=== PATIENT | female | born 1995 | race Two or more races ===

== ENCOUNTER 2019-12-28 15:58 | Emergency (ER) | payer BC ==
[~2019-12-28] VITALS: Ht 154.9 cm; Wt 49.0 kg
[2019-12-28 17:17] LABS: Urine Bacteria FEW /hpf (None Seen); Urine Blood Negative /uL (Negative); Urine Mucus FEW (None Seen); Urine WBC 28 /hpf (0 - 5)
[2019-12-28 18:24] VITALS: BP 114/70
== END 2019-12-28 18:24 | disposition home or self-care (01) ==
LOC: ER 15:58
DX: O20.0 Threatened abortion (principal); O23.41 Unspecified infection of urinary tract in pregnancy, first trimester; Z3A.12 12 weeks gestation of pregnancy
CPT/HCPCS: 36415; 76801; 81001; 84702

== ENCOUNTER 2020-03-20 12:10 | Observation (INO) | payer BC ==
[~2020-03-20] VITALS: Ht 154.9 cm; Wt 50.8 kg
== END 2020-03-20 13:08 | disposition home or self-care (01) ==
LOC: LDRP 12:10
PROVIDERS: ADMIT Obstetrics & Gynecology; ATTEND Obstetrics & Gynecology
DX: O26.892 Other specified pregnancy related conditions, second trimester (principal); R10.9 Unspecified abdominal pain; Z3A.24 24 weeks gestation of pregnancy
CPT/HCPCS: 59025; 81002; G0378